=== PATIENT | male | born 1955 | race Caucasian/White ===

== ENCOUNTER 2021-10-23 11:46 | Inpatient (IN) | payer OTHER ==
[2021-10-23] MEDS ORDERED: MAG HYDROX/AL HYDROX/SIMETH 30 ML UNIT-DOSE CUP PO PRN (12:49)
[2021-10-23] MEDS ORDERED: IBUPROFEN 400 MG TABLET (FP) PO PRN (12:49)
[2021-10-23] MEDS ORDERED: LOPERAMIDE HCL 2 MG CAPSULE PO PRN (12:49)
[2021-10-23] MEDS ORDERED: BISMUTH SUBSALICYLATE 262 MG/15 ML BTL PO PRN (12:49)
[2021-10-23] MEDS ORDERED: NICOTINE 10 MG CARTRIDGE (INHALER) IH PRN (12:49)
[2021-10-23] MEDS ORDERED: MAGNESIUM CITRATE 300 ML BOTTLE PO PRN (12:49)
[2021-10-23] MEDS ORDERED: ONDANSETRON *ODT* 4 MG TABLET SL PRN (12:49)
[2021-10-23] MEDS ORDERED: ACETAMINOPHEN 325 MG TABLET (FP) PO PRN ×2 (12:49)
[2021-10-23] MEDS ORDERED: chlordiazePOXIDE HCL 25 MG CAPSULE PO PRN (12:49)
[2021-10-23] MEDS ORDERED: MENTHOL/PHENOL 1 EACH UD MM PRN (12:49)
[2021-10-23] MEDS ORDERED: MAGNESIUM HYDROX 2400MG/30ML ORAL SUSPENSION 30 ML CUP PO PRN (12:49)
[2021-10-23 13:39] VITALS: BMI 25.8
[2021-10-23 15:31] LABS: HEMATOCRIT 39.7 % (35.4-49); HEMOGLOBIN 13.7 GM/dL (11.7-16.9); MCH 34.1 pg (25.7-33.7); MCHC 34.6 g/dl (32.0-35.9); MEAN CELL VOLUME 98.6 fl (80-96); MEAN PLT VOLUME 7.8 fl (7.5-11.1); PLATELET COUNT 254 10^3/uL (134-434); RBC 4.02 M/mm3 (4.00-5.60); RDW 13.6 % (11.9-15.9); WHITE BLOOD COUNT 7.1 K/mm3 (4.0-10.0)
[2021-10-23 15:43] LABS: ALBUMIN 4.1 g/dl (3.4-5.0); CALCIUM 9.6 mg/dL (8.5-10.1)
[2021-10-23 15:45] LABS: CREATININE 0.6 mg/dL (0.55-1.3)
[2021-10-23 15:46] LABS: BILIRUBIN,TOTAL 1.1 mg/dL (0.2-1); TOT PROT 7.3 g/dl (6.4-8.2)
[2021-10-23] MEDS: chlordiazePOXIDE HCL 25 MG CAPSULE PO SCH ×2 (19:00→22:34)
[2021-10-23] MEDS: MELATONIN 5 MG TABLETS PO SCH (22:33)
[2021-10-23] MEDS: THIAMINE HCL 100 MG TABLET (FP) PO SCH (22:34)
[2021-10-23] MEDS: METHOCARBAMOL 500 MG TABLET PO PRN (23:36)
[2021-10-24] MEDS: chlordiazePOXIDE HCL 25 MG CAPSULE PO SCH ×4 (05:08→22:53)
[2021-10-24] MEDS: NALTREXONE HCL 50 MG TABLET PO SCH (10:39)
[2021-10-24] MEDS: CYANOCOBALAMIN 1,000 MCG TABLET (FP) PO SCH (10:39)
[2021-10-24] MEDS: amLODIPine BESYLATE 5 MG TABLET (FP) PO SCH (10:40)
[2021-10-24] MEDS: PRENATAL VITAMINS W/ FOLIC ACID TABLET (FP) PO SCH (10:42)
[2021-10-24] MEDS: METHOCARBAMOL 500 MG TABLET PO PRN ×2 (10:42→18:24)
[2021-10-24] MEDS: THIAMINE HCL 100 MG TABLET (FP) PO SCH (22:52)
[2021-10-24] MEDS: MELATONIN 5 MG TABLETS PO SCH (22:52)
[2021-10-25] MEDS: chlordiazePOXIDE HCL 25 MG CAPSULE PO SCH ×4 (05:55→22:58)
[2021-10-25] MEDS: METHOCARBAMOL 500 MG TABLET PO PRN ×2 (10:10→22:59)
[2021-10-25] MEDS: CYANOCOBALAMIN 1,000 MCG TABLET (FP) PO SCH (10:10)
[2021-10-25] MEDS: amLODIPine BESYLATE 5 MG TABLET (FP) PO SCH (10:10)
[2021-10-25] MEDS: PRENATAL VITAMINS W/ FOLIC ACID TABLET (FP) PO SCH (10:11)
[2021-10-25 12:43] LABS: BASO % 0.9 % (0-2.0); EOS % 3.4 % (0-4.5); HEMATOCRIT 36.5 % (35.4-49); HEMOGLOBIN 12.5 GM/dL (11.7-16.9); LYMPH % 16.3 % (8-40); MCH 33.8 pg (25.7-33.7); MCHC 34.1 g/dl (32.0-35.9); MEAN PLT VOLUME 8.1 fl (7.5-11.1); MONO % 13.1 % (3.8-10.2); NEUT % 66.3 % (42.8-82.8); PLATELET COUNT 189 10^3/uL (134-434); RBC 3.69 M/mm3 (4.00-5.60); RDW 13.4 % (11.9-15.9); WHITE BLOOD COUNT 4.4 K/mm3 (4.0-10.0)
[2021-10-25] MEDS: NALTREXONE HCL 50 MG TABLET PO SCH (13:49)
[2021-10-25] MEDS: MELATONIN 5 MG TABLETS PO SCH (22:58)
[2021-10-25] MEDS: THIAMINE HCL 100 MG TABLET (FP) PO SCH (22:59)
[2021-10-25] MEDS: hydrOXYzine PAMOATE 25 MG CAPSULE (FP) PO PRN (22:59)
[2021-10-26] MEDS ORDERED: chlordiazePOXIDE HCL 10 MG CAPSULE PO PRN
[2021-10-26] MEDS: chlordiazePOXIDE HCL 10 MG CAPSULE PO SCH ×4 (05:38→22:27)
[2021-10-26] MEDS: PRENATAL VITAMINS W/ FOLIC ACID TABLET (FP) PO SCH (10:38)
[2021-10-26] MEDS: METHOCARBAMOL 500 MG TABLET PO PRN (10:38)
[2021-10-26] MEDS: NALTREXONE HCL 50 MG TABLET PO SCH (10:39)
[2021-10-26] MEDS: CYANOCOBALAMIN 1,000 MCG TABLET (FP) PO SCH (10:39)
[2021-10-26] MEDS: amLODIPine BESYLATE 5 MG TABLET (FP) PO SCH (10:39)
[2021-10-26] MEDS: MELATONIN 5 MG TABLETS PO SCH (22:28)
[2021-10-26] MEDS: THIAMINE HCL 100 MG TABLET (FP) PO SCH (22:28)
[2021-10-27] MEDS ORDERED: chlordiazePOXIDE HCL 10 MG CAPSULE PO SCH (05:00)
[2021-10-27] MEDS: hydrOXYzine PAMOATE 25 MG CAPSULE (FP) PO PRN (05:18)
[2021-10-27 09:16] VITALS: BP 143/86; PULSE 105; TEMP 97.5
[2021-10-28] MEDS ORDERED: chlordiazePOXIDE HCL 10 MG CAPSULE PO ONE (05:00)
== END 2021-10-27 09:33 | disposition home or self-care (01) | DRG 897 ==
LOC: YASAS 11:46 → Y3N 14:41
PROVIDERS: ADMIT Allergy & Immunology; ATTEND Allergy & Immunology
PROC: HZ2ZZZZ Detoxification Services for Substance Abuse Treatment (ICD-10-PCS; principal; 2021-10-23)
DX: F19.230 Other psychoactive substance dependence with withdrawal, uncomplicated (principal); C91.01 Acute lymphoblastic leukemia, in remission; E78.5 Hyperlipidemia, unspecified; I10 Essential (primary) hypertension; Z96.643 Presence of artificial hip joint, bilateral; Z99.89 Dependence on other enabling machines and devices; Z98.2 Presence of cerebrospinal fluid drainage device
CPT/HCPCS: 36415; 80053; 85025; 85027; 86780; 87811; 93005; 93010; C9803-CS; U0003; U0005

== ENCOUNTER 2025-02-08 16:39 | Inpatient (IN) | payer OTHER ==
[2025-02-08 17:05] VITALS: BMI 26.8
[2025-02-08] MEDS ORDERED: BENZOCAINE/MENTHOL (CHLORASEPTIC ) LOZENGE MM PRN (17:18)
[2025-02-08] MEDS ORDERED: DICYCLOMINE HCL 10 MG CAPSULE PO PRN (17:18)
[2025-02-08] MEDS ORDERED: MAG HYDROX/AL HYDROX/SIMETH 30 ML UNIT-DOSE CUP PO PRN (17:18)
[2025-02-08] MEDS ORDERED: BENZONATATE 200 MG CAPSULE PO PRN (17:18)
[2025-02-08] MEDS ORDERED: guaiFENesin 600 MG TABLET.ER (FP) PO PRN (17:18)
[2025-02-08] MEDS ORDERED: IBUPROFEN 600 MG TABLET (FP) PO PRN (17:18)
[2025-02-08] MEDS ORDERED: NALOXONE (NARCAN) HCL 4 MG/0.1 ML SPRAY NS PRN (17:18)
[2025-02-08] MEDS ORDERED: MAGNESIUM HYDROX 2400MG/30ML ORAL SUSPENSION 30 ML CUP PO PRN (17:18)
[2025-02-08] MEDS ORDERED: IBUPROFEN 400 MG TABLET (FP) PO PRN (17:18)
[2025-02-08] MEDS ORDERED: ONDANSETRON *ODT* 4 MG TABLET SL PRN (17:18)
[2025-02-08] MEDS ORDERED: LOPERAMIDE HCL 2 MG CAPSULE PO PRN (17:18)
[2025-02-08] MEDS ORDERED: ACETAMINOPHEN 325 MG TABLET (FP) PO PRN (17:18)
[2025-02-08] MEDS ORDERED: POLYETHYLENE GLYCOL (HEALTHYLAX) 3350 17 GM PACKET PO PRN (17:18)
[2025-02-08] MEDS: MELATONIN 5 MG TABLETS PO SCH (22:27)
[2025-02-08] MEDS: THIAMINE 100 MG TABLET PO SCH (22:27)
[2025-02-09] MEDS: amLODIPine BESYLATE 5 MG TABLET (FP) PO SCH (09:11)
[2025-02-09] MEDS: PRENATAL VITAMINS W/ FOLIC ACID TABLET (FP) PO SCH (09:11)
[2025-02-09 11:55] LABS: MCHC 35.5 g/dl (32.3-36.5); MEAN CELL VOLUME 97.1 fl (79.0-92.2); MEAN PLT VOLUME 10.8 fl (9.4-12.4); RDW 13.3 % (12.2-16.6)
[2025-02-09 12:23] LABS: CO2 28 mmol/L (21-32)
[2025-02-09 12:24] LABS: GLUCOSE,RANDOM 123 mg/dL (74-106)
[2025-02-09 12:25] LABS: SGOT/AST 64 U/L (15-37); SGPT/ALT 48 U/L (13-61)
[2025-02-09 12:26] LABS: CREATININE 0.6 mg/dL (0.55-1.3)
[2025-02-09 12:27] LABS: TOT PROT 6.1 g/dl (6.4-8.2)
[2025-02-09 12:28] LABS: ALK PHOS 69 U/L (45-117)
[2025-02-09] MEDS: MELATONIN 5 MG TABLETS PO SCH (22:40)
[2025-02-10 06:32] VITALS: RESP 16
[2025-02-10 10:23] VITALS: BP 137/78; PULSE 80; TEMP 97.6
== END 2025-02-10 12:30 | disposition home or self-care (01) | DRG 897 ==
LOC: YASAS 16:39 → Y3N 20:24 → UNDOADMIN 20:24 → Y6N 20:25 → Y3N 20:25
PROVIDERS: ADMIT Neuromusculoskeletal Medicine & OMM; ATTEND Allergy & Immunology
PROC: HZ2ZZZZ Detoxification Services for Substance Abuse Treatment (ICD-10-PCS; principal; 2025-02-08)
DX: F10.20 Alcohol dependence, uncomplicated (principal); C91.01 Acute lymphoblastic leukemia, in remission; F17.210 Nicotine dependence, cigarettes, uncomplicated; F10.282 Alcohol dependence with alcohol-induced sleep disorder; E78.5 Hyperlipidemia, unspecified; I10 Essential (primary) hypertension; Z98.2 Presence of cerebrospinal fluid drainage device
CPT/HCPCS: 36415; 80053; 80305; 80307; 85027; 86780; 93005; 93010